=== PATIENT | male | born 1995 | race Hispanic/Latino ===

== ENCOUNTER → 2018-03-18 | Outpatient (CLI) | payer OTHER | LOC: M RAD 15:43 | DX: J32.4 Chronic pansinusitis (principal) | CPT/HCPCS: 70486 ==

== ENCOUNTER → 2019-01-01 | Outpatient (CLI) | payer OTHER ==
--- NOTE | 2019-01-01 12:28 | REP ---
MAXILLOFACIAL CT WITHOUT CONTRAST: HISTORY: Chronic pansinusitis. COMPARISON: 03/18/2018. There is diffuse sinus mucosal thickening. There is complete opacification of the left frontal sinus. There is almost complete opacification of the ethmoid, left maxillary and right frontal sinuses. Mild mucosal thickening is present in the sphenoid and right maxillary sinuses. Mucosal thickening involves the osteomeatal units. The uncinate processes are incompletely seen. This is due to demineralization secondary to chronic sinusitis. The middle and inferior nasal turbinates are partially paradoxical. There is minimal deviation of the nasal septum to the right. The cribriform plate, medial callejas of the orbits, and optic canals are intact. The carotid canals form a segment of the posterolateral callejas of the sphenoid sinus. Soft tissue densities are present in the nasal passage consistent with polyps. IMPRESSION: 1. Sinus mucosal thickening as described above. 2. There are soft tissue densities in the nasal passage consistent with polyps. Electronically Signed by Servando Crooks MD 01/01/2019 12:30 P
== END ==
LOC: M RAD 09:11
PROVIDERS: ATTEND Otolaryngology
DX: J32.4 Chronic pansinusitis (principal)

== ENCOUNTER 2019-04-09 09:20 | Day surgery (SDC) | payer OTHER ==
[~2019-04-09] VITALS: Ht 180.3 cm; Wt 108.9 kg
[~2019-04-09 09:20] MED LIST: FLON1SPR NARES; ZYRTTAB8 PO
[2019-04-09] MEDS ORDERED: ONDANSETRON 4MG/2ML VIAL (J2405) As Ordered ONE (10:25)
[2019-04-09] MEDS ORDERED: dexameTHASONE 4 MG/ML 1ML VIAL (J1100) As Ordered ONE ×2 (10:25→11:53)
[2019-04-09] MEDS ORDERED: fentaNYL 100 MCG/2 ML INJECTION (J3010) As Ordered ONE ×2 (10:26→14:42)
[2019-04-09] MEDS ORDERED: MIDAZOLAM INJ 2 MG/2 ML VIAL (J2250) As Ordered ONE (10:26)
[2019-04-09] MEDS ORDERED: REMIFENTANIL 1MG 3ML VIAL As Ordered ONE ×2 (10:26→10:28)
[2019-04-09] MEDS ORDERED: LIDOCAINE 2% INJ 100 MG/5 ML SDV (FOR ANES.) As Ordered ONE (10:26)
[2019-04-09] MEDS ORDERED: ROCURONIUM BROMIDE 50 MG/5 ML VIAL As Ordered ONE (10:26)
[2019-04-09] MEDS ORDERED: PROPOFOL 200 MG/20 ML VIAL As Ordered ONE (10:26)
[2019-04-09] MEDS ORDERED: LIDOCAINE W/EPINEPHRINE 1% 20ML VIAL As Ordered ONE (11:09)
[2019-04-09] MEDS ORDERED: METHYLENE BLUE 0.5% (5MG/ML) 10 ML AMP (PROVAYBLUE)(Q9968 PER 1MG) As Ordered ONE (11:09)
[2019-04-09] MEDS ORDERED: SODIUM CHLORIDE 0.9% NASAL GEL 15GM (AYR) As Ordered ONE (11:09)
[2019-04-09] MEDS ORDERED: OXYMETAZOLINE NASAL SPRAY (AFRIN) As Ordered ONE ×2 (11:10→11:54)
[2019-04-09] MEDS ORDERED: ACETAMINOPHEN 1000MG 100ML IV BTL (OFIRMEV) (J0131 PER 10MG) As Ordered ONE (14:04)
[2019-04-09] MEDS: fentaNYL 100 MCG/2 ML INJECTION (J3010) IV PRN ×4 (14:45→15:05)
[2019-04-09] MEDS ORDERED: ANEXSIA, NORCO 7.5MG/325MG TABLET(HYDROCODONE/APAP) PO ONE (15:00)
[2019-04-09] MEDS ORDERED: ACETAMINOPH W/CODEINE #3 TAB UD PO PRN (15:00)
[2019-04-09] MEDS ORDERED: ONDANSETRON 4MG/2ML VIAL (J2405) IV PRN (15:00)
[2019-04-09] MEDS ORDERED: LR 1,000 ML IV SCH (15:00)
[2019-04-09] MEDS: PERCOCET 5MG/325MG TAB PO PRN ×2 (15:02→15:35)
[2019-04-09 16:15] VITALS: BP 144/61
--- NOTE | 2019-04-10 16:44 | RO ---
DATE OF PROCEDURE: 04/09/2019 PREOPERATIVE DIAGNOSIS: Pansinusitis, nasal obstruction and severe nasal polyposis recalcitrant to medical therapy. POSTOPERATIVE DIAGNOSIS: Pansinusitis, nasal obstruction and severe nasal polyposis recalcitrant to medical therapy. 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 SURGEON: George Mendoza Jr, MD ANESTHESIA: General endotracheal tube by Dr. Yarbrough and C.R.N.A. INDICATIONS FOR PROCEDURE: Recalcitrant chronic pansinusitis with nasal obstruction. OPERATION PERFORMED 1. Bilateral anterior ethmoidectomy. 2. Bilateral sphenoidotomies 3. Bilateral maxillary sinusotomies endoscopically with removal of the content and cultures as well as bilateral balloon sinuplasty of the left and right frontal sinuses. No septoplasty were no inferior turbinate plasty was performed. In additional the patient had removal of severe nasal polyposis bilaterally completely filling up the nasal cavity endoscopically as well. PROCEDURE IN DETAIL: With the patient in supine position after being induced and beta prepped and draped in usual fashion the nasal cavity was completely filled with nasal polyps completely obstructing nasal cavity bilaterally. Decongestion with topical Afrin soaked pledgets as well as injecting 7 mL of 1% lidocaine 1:100,000 epinephrine was done. Once this was done, the patient was prepped and draped in usual fashion the patient was identified and time-out was performed. The patient had the 4 mm microdebrider straight shot which was utilized initially the left nasal polyps were microdebrided inferiorly working posteriorly. There was a polyp that was going in to the nasal pharynx on the left side. This was truncated at its base and sent as an individual specimen. The polyps were taken inferiorly posteriorly to anterior and then was taken up into the middle meatus region. The patient had pretty significant different anatomy and on observation of the films it appeared that the frontal sinus was lateral to a calcified plate of bone and not near typical position most likely due to the chronic changes in the patient's status. In a similar fashion the right side was also debrided of the nasal polyps with the microdebrider with the soft suction device. This was cleaned out again there was a truncated polyps in the nasopharynx that was removed and sent as a separate specimen as well. After this was done microdebrider was used to further identify the middle meatus the middle turbinate was medialized. Inferior turbinate was ready for the lateralized as the results there was abnormal perpendicular bone in the ethmoid area which is showed in the CT scan and the lateral aspect of the as were the sinus tract initially to the frontal sinus was by the CT scan present and this is the one that was cannulated with the Minal device with the frontal balloon sinuplasty and this was delivered into the frontal sinus was cleared easy visualization and range of motion of the balloon was dilated to 12 cm in multiple sections and removing it slowly and also irrigating there was some thick inspissated type mucus mucosa that was present as well. In the left maxillary posterior ethmoid region. There was a concretion compatible with a fungal mycetoma that was sent for permanent as well as cultures for aerobic, anaerobic and fungal. The patient has significant nasal polyposis in the ethmoid this was removed with the microdebrider in safe fashion. Similar fashion on the right side was also identified and the middle turbinate was lateralized significant pulposus was present. Uncinate process both sides was effaced and brought anteriorly. This was removed with a 45 degree through cut in the microdebrider and straight through cut as well. Endoscopic maxillary sinusotomies were done after identifying then natural opening with secretions. This was cannulated with a curved Allis tip on the left side and thick inspissated secretions and findings compatible with fungal sinusitis were present as well. This was cannulated and copiously irrigated with the irrigation device and in a similar fashion the right side was also identified and opened. It was opened with the pediatric back biter and the left and the right side as well as straight through cuts as well. Attention then was drawn to the sphenoidotomies sites where there was polypoid material that was present that was blocking the areas. However, the sphenoid sites themselves were actually patent but no polyps were removed and this was slightly dilated as necessary. The patient then had irrigation of the nasal cavity and it was not necessary to perform a septoplasty or an inferior turbinate plasty. The patient did have the left frontal and right frontal recannulated copiously irrigated again. A contour propel splint was deployed in the left as well as the right frontal ostium site followed by mini propel in the anterior ethmoidectomy site. After this was done the nasal cavity was copiously irrigated with saline. In addition to that was also hydrated and suctioned. Both maxillary sinuses were suctioned with curved Allis tips which were widely patent. Nasal poor packing was then placed in the middle meatus and at this point there is no problems. No complications. The patient tolerated the procedure well. Estimated blood loss was approximately 75 mL. Pathology contents were polyps. Findings compatible with a fungal ball in the left posterior ethmoid maxillary region also cultures for aerobic, anaerobic and fungal as well as Gram stain.
== END 2019-04-09 16:35 | disposition home or self-care (01) ==
LOC: M SDC 09:20
PROVIDERS: ATTEND Otolaryngology
DX: J01.40 Acute pansinusitis, unspecified (principal); J34.89 Other specified disorders of nose and nasal sinuses; J33.9 Nasal polyp, unspecified; Z79.899 Other long term (current) drug therapy; F17.210 Nicotine dependence, cigarettes, uncomplicated
CPT/HCPCS: 31254; 31267; 31288; 31296; 87070; 87075; 87077; 87102; 87186; 87205; 88304; 88305; J0131; J1100; J2250; J2405; J3010; Q9968